=== PATIENT | female | born 1975 | race Caucasian/White ===

== ENCOUNTER → 2023-03-03 07:54 | Outpatient (REF) | payer OTHER, SELFPAY ==
--- NOTE | 2023-03-03 08:01 | CA_ITS ---
Acquisition Time: 2023-03-03 08:14:56 Total Exercise Time: 00:09:00 Test Indications: Dyspnea Medications: SERTRALINE Protocol: MAVIS Max HR: 173 BPM 100% of Pred: 172 BPM Max BP: 148/100 mmHG Max Work Load: 10.1 METS Exercise stress test with exercise 9 min of Mavis protocol, achieving 100% MPHR, without anginal symptoms, without arrythmia, with normotensive response to exercise, without EKG changes meeting criteria for ischemia. Test reviewed with Dr Carvalho. Referred By: Lanie Taylor Overread By: HEDY KRAFT
== END ==
LOC: HO.CARD 07:54
PROVIDERS: PCP Family Medicine; Visit Provider Family Medicine
DX: R06.09 Other forms of dyspnea (principal)
CPT/HCPCS: 93017

== ENCOUNTER → 2023-03-03 08:01 | Outpatient (BNV) | payer OTHER, SELFPAY | PROVIDERS: PCP Family Medicine; Visit Provider Nurse Practitioner Family | DX: R06.09 Other forms of dyspnea (principal) | CPT/HCPCS: 93016; 93018 ==

== ENCOUNTER 2023-05-12 17:49 | Outpatient (REF) | payer OTHER, SELFPAY ==
--- NOTE | ~2023-05-12 | MR_ITS ---
EXAMINATION: MR LUMBAR SPINE WITHOUT CONTRAST CLINICAL INFORMATION: Radiculopathy, lower back pain, right leg pain and weakness COMPARISON: None TECHNIQUE: MRI of the lumbar spine was obtained using routine sequences without contrast. FINDINGS: Normal anatomic alignment. No suspicious marrow signal or focal osseous lesion. The vertebral body heights are maintained. The intervertebral discs are of normal height and signal. The conus medullaris terminates at the level of L1. The distal spinal cord is normal in appearance. The cauda equina nerve roots appear normal. Edema in the subcutaneous dorsal soft tissues. Limited evaluation of the intra-abdominal structures without significant abnormalities. The abdominal aorta is of normal contour and caliber. SPINAL LEVELS: L1-L2: No significant spinal canal or neuroforaminal narrowing. L2-L3: No significant spinal canal or neuroforaminal narrowing. L3-L4: No significant spinal canal or neuroforaminal narrowing. L4-L5: No significant spinal canal or neural foraminal narrowing. Mild facet arthropathy with small joint fluid and mild right periarticular marrow edema L5-S1: No significant spinal canal or neural foraminal narrowing. Moderate facet arthropathy, right greater than left, with small joint fluid and mild right periarticular marrow edema. MR/MR lumbar spine wo con IMPRESSION: 1. Moderate right greater than left facet arthropathy at L5-S1 and mild facet arthropathy at L4-L5 with small joint effusions and mild right-sided periarticular marrow edema, likely reflecting degenerative arthritis. 2. Otherwise unremarkable MRI of the lumbar spine. No significant spinal canal stenosis or neural foraminal narrowing.
== END 2023-05-12 17:50 | disposition home or self-care (01) ==
LOC: HO.MRI 17:49
PROVIDERS: PCP Family Medicine; Visit Provider Physical Medicine & Rehabilitation
DX: M54.16 Radiculopathy, lumbar region (principal)
CPT/HCPCS: 72148

== ENCOUNTER 2024-01-02 09:40 | Outpatient (AMB) | payer OTHER, SELFPAY ==
--- NOTE | 2024-01-02 09:41 | MHC.OFFVIS ---
Vital Signs 01/02/24 09:54 Height 5 ft 5.75 in Weight 249 lb 2 oz BMI 40.5 BP 140/88 H Blood Pressure Location Rt brachial Position Sitting Respiration 16 Pulse 86 Pulse Source Pulse Oximeter Pulse Oximetry (%) 94 Oxygen Delivery Method Room Air Intake Visit Reasons: Low Back Pain (Arthropathy of Lumbar Facet Joint) Intake Note: Patient comes in for initial visit was referred by [facility]. Allergies venomil wasp venom Allergy (Mild, Uncoded 01/02/24 09:06) swelling HPI Comments Details: Patient is a very pleasant 48-year-old female who presents to the office today for evaluation management of her chronic lower back pain. She has been suffering with this pain for many years. Previously under treatment at [facility]. Endorses midline lower back pain without radiation down either lower extremity Pain is worse with moving, bending, twisting, lying flat. Pain today is rated as a 4/10, constant, worse in the mornings evenings and middle of the night. Recent MRI reviewed, results as per below Patient completed physical therapy < 1 year ago with minimal improvement of her symptoms. Continues with home exercise program. No improvement with chiropractor or massage Patient takes Effexor, unable to take nonsteroidal anti-inflammatory medications. 03/2023 patient underwent therapeutic L3-L4 L5 medial branch blocks at [facility]. She reports 80% pain relief with improvement in function and mobility after the injections. They are ready to schedule repeat therapeutic injections but she is looking to discuss alternative treatments as she is not sure if she wants to continue getting steroid injections. In terms of muscle damage condition is described as aching, spasming, hot, burning, shooting, dull, tiring, exhausting, throbbing Pain is negatively impacting patient's enjoyment of life, general activity, mood, normal work, recreational activities, relationships with people, sleep, walking Denies current use of anticoagulant Denies implantable devices, pacemaker defibrillator Denies current use of nicotine, tobacco, alcohol or illicit substances [facility] Medical History (Updated 01/02/24 @ 15:55 by Renay Kerr, ACCOUNTS RECEIVABLE ASSOCIATE, MICROBIOLOGY ANALYST) Obesity Migraine Generalized anxiety disorder Restless leg Family History (Updated 01/02/24 @ 09:14 by Ramona Alcantara) Paternal Grandmother Malignant tumor of breast Malignant tumor of pancreas Mother Lung cancer Social History (Updated 01/02/24 @ 09:49 by Ramona Alcantara) Alcohol intake: current Alcohol intake frequency: holidays/special occasions only Patient Tobacco Use Status: Never used Tobacco Review of Systems Const All systems reviewed & are unremarkable except as noted in HPI and below Physical Exam Vital Signs: Last Vital Signs Pulse 86 01/02/24 09:54 Resp 16 01/02/24 09:54 BP 140/88 H 01/02/24 09:54 Pulse Ox 94 01/02/24 09:54 Oxygen Delivery Method Room Air 01/02/24 09:54 BMI result Body Mass Index 40.5 General: awake, alert, oriented. Answers questions appropriately. Fully engaged in examination. Skin: warm, dry, intact HEENT: Normocephalic. Hearing intact. Cardiac: External chest normal in appearance. Respiratory: No cough, audible wheezing or stridor. Abdomen: without gross distension. MS: No obvious swelling or deformities. Able to transition from sit to stand unassisted. Ambulates with bilaterally normal heel strike and toe off Tenderness over midline lumbar vertebrae and lumbar paraspinal muscles Facet loading positive SLR negative bilaterally Nontender over bilateral PSIS Bilateral lower extremity strength 5/5 Neurological: Oriented to person, place, time and situation. Thought process intact. No gait abnormalities appreciated. Psychiatric: Appropriate mood and affect. Good judgment and insight. Results Reviewed Results Reviewed: 05/12/23 MR/MR lumbar spine wo con FINDINGS: Normal anatomic alignment. No suspicious marrow signal or focal osseous lesion. The vertebral body heights are maintained. The intervertebral discs are of normal height and signal. The conus medullaris terminates at the level of L1. The distal spinal cord is normal in appearance. The cauda equina nerve roots appear normal. Edema in the subcutaneous dorsal soft tissues. Limited evaluation of the intra-abdominal structures without significant abnormalities. The abdominal aorta is of normal contour and caliber. SPINAL LEVELS: L1-L2: No significant spinal canal or neuroforaminal narrowing. L2-L3: No significant spinal canal or neuroforaminal narrowing. L3-L4: No significant spinal canal or neuroforaminal narrowing. L4-L5: No significant spinal canal or neural foraminal narrowing. Mild facet arthropathy with small joint fluid and mild right periarticular marrow edema L5-S1: No significant spinal canal or neural foraminal narrowing. Moderate facet arthropathy, right greater than left, with small joint fluid and mild right periarticular marrow edema. IMPRESSION: 1. Moderate right greater than left facet arthropathy at L5-S1 and mild facet arthropathy at L4-L5 with small joint effusions and mild right-sided periarticular marrow edema, likely reflecting degenerative arthritis. 2. Otherwise unremarkable MRI of the lumbar spine. No significant spinal canal stenosis or neural foraminal narrowing. Assessment & Plan Assessment & Plan (1) Plantar fasciitis: Code(s): M72.2 - Plantar fascial fibromatosis Category: Medical (2) Lumbar facet arthropathy: Code(s): M47.816 - Spondylosis without myelopathy or radiculopathy, lumbar region Category: Medical Plan Patient presented to the office today for evaluation management of her chronic lower back pain History, physical exam and provocative testing consistent with bilateral facet arthropathy Patient has exhausted conservative therapy including PT, home exercise program, chiropractor, massage. Patient is unable to take nonsteroidal anti-inflammatory medications due to current use of Effexor. Discussed options for treatment including therapeutic injections, sprint peripheral nerve stimulator and RFA. March 2023 patient underwent therapeutic L3-L4 DR L5 medial branch blocks at [facility] with 80% pain relief and improvement in functional mobility for at least 3 months after the procedure. Will schedule for fluoroscopy guided bilateral L4, maybe L3, maybe L5 sprint PNS. We will start with the right side, left side to follow 2 weeks after. New prescription for methocarbamol 500 mg p.o. 3 times daily as needed. Patient advised on cautions for use. Referral for podiatry placed All questions and concerns were answered, patient agrees with the plan. Follow up after procedure, sooner if needed Orders: Referrals Podiatry Referral M72.2 - Plantar fascial fibromatosis Medications: New methocarbamol No driving while taking this medication. Do no take with alcohol or other [employer] Depressants 500 mg PO TID PRN 90 tabs 0RF muscle spasm Coding Level of Care Code New Pt Level 4 (61169) Complex EM visit Add On G2211 Diagnoses Plantar fasciitis M72.2 Lumbar facet arthropathy M47.816
[2024-01-02 09:54] VITALS: BP 140/88; PULSE 86; RESP 16; O2SAT 94; BMI 40.5
== END 2024-01-02 10:37 | disposition home or self-care (01) ==
PROVIDERS: PCP Family Medicine; Referring Provider Family Medicine; Visit Provider Registered Nurse Emergency
DX: M72.2 Plantar fascial fibromatosis (principal); M47.816 Spondylosis without myelopathy or radiculopathy, lumbar region
CPT/HCPCS: 99204